=== PATIENT | female | born 2000 | race Caucasian/White ===

== ENCOUNTER 2019-11-27 06:53 | Outpatient (CLI) | payer BC ==
--- NOTE | 2019-11-27 10:12 | Ultrasound Report ---
PROCEDURE: OB First Trimester INDICATIONS: POSITIVE TEST OUTSIDE/PRIOR DATING DATA: Last menstrual period (LMP): 10/04/2019. LMP-based estimated date of delivery (RILEY): 07/10/2020. First dating scan (date and location): 11/27/2019, current scan. Estimated date of delivery (RILEY) from first dating scan: 07/09/2020. TECHNIQUE: Real-time scanning was performed of the fetus and maternal pelvic organs, with image documentation. COMPARISON: None during this FINDINGS: Embryo: A single living intrauterine is present. The pole has an average crown-rump length of 15.5 cm. A normal yolk sac is present. There is detectable cardiac activity at a rate of 17 5 bpm. Measurement variability in dating: +/- 4 weeks by LMP, +/- 7 days by mean sac diameter (use before 6 weeks gestation if crown-rump length not able to be measured), +/- 5 days by crown-rump length (6-12 weeks gestation). Maternal organs: The uterus is anteverted and anteflexed. An intrauterine gestational sac creates a moderate decidual response. The cervix is closed. No perigestational hemorrhage. Ovaries appear kelby l. Limited images through the kidneys demonstrate no hydronephrosis. IMPRESSION: 1. Single live intrauterine with a gestational age of 7 weeks, 6 days and estimated due jaciel e of 07/09/2020, in good agreement with the clinically assigned gestational age. Reviewed by: Veronica Conte MD on 11/27/2019 10:11 AM PDT Approved by: Veronica Conte MD on 11/27/2019 10:11 AM PDT Station ID: [id number]
== END 2019-11-27 06:54 | disposition home or self-care (01) ==
LOC: DI 06:53
PROVIDERS: ATTEND Advanced Practice Midwife
DX: Z32.01 Encounter for pregnancy test, result positive (principal)
CPT/HCPCS: 76801